=== PATIENT | female | born 1955 | race Caucasian/White ===

== ENCOUNTER 2019-11-28 12:14 | Outpatient (CLI) | payer OTHER, SELFPAY ==
--- NOTE | ~2019-11-28 | US_ITS ---
EXAMINATION: US carotid duplex BI EXAM DATE: 11/28/2019 12:57 INDICATION: Carotid stenosis bilaterally. Right vertebral artery reversal. Subclavian steal. TECHNIQUE: Grayscale, color and pulsed Doppler images of the cervical carotid arteries were obtained . The degree of vessel stenosis is placed in one of the following categories: normal, <50% stenosis, 50-69% stenosis, >=70% stenosis but less than near-occlusion, near-occlusion, or occlusion. Note that percent stenosis relative to normal distal artery lumen diameter is indirectly measured from velocit y measurements as described by Corona, et al. Radiology 2003; 229:340-346. Comparison is made to prior examination from 08/08/2018. FINDINGS: RIGHT SIDE: Right common carotid artery peak systolic velocity (PSV in cm/s): 98 Right bulb/internal carotid artery peak systolic velocity (PSV in cm/s): 87 Right internal carotid artery end diastolic velocity (EDV in cm/s): 16 Right ICA/CCA peak systolic ratio: 0.9 Right external carotid artery peak systolic velocity (PSV in cm/s): 164 Right vertebral artery antegrade flow: Reversed There is mild to moderate carotid bulb plaque. Velocity and Doppler waveforms in the common and internal carotid arteries is normal. LEFT SIDE: Left common carotid artery peak systolic velocity (PSV in cm/s): 93 Left bulb/internal carotid artery peak systolic velocity (PSV in cm/s): 127 Left internal carotid artery end diastolic velocity (EDV in cm/s): 21 Left ICA/CCA peak systolic ratio: 1.4 Left external carotid artery peak systolic velocity (PSV in cm/s): 102 Left vertebral artery antegrade flow: yes There is moderate carotid bifurcation plaque. Mildly elevated ICA velocity. IMPRESSION: 1. Less than 50 percent stenosis in the right internal carotid artery. 2. 50-69% stenosis in the left internal carotid artery. 3. Persistent right vertebral arterial flow reversal. Reviewed, dictated and finalized at location B. OR PROPERTY MANAGER
== END 2019-11-28 12:15 | disposition home or self-care (01) ==
LOC: ANHIMG 12:21
PROVIDERS: PCP Internal Medicine; Visit Provider Surgery Vascular Surgery
DX: I65.23 Occlusion and stenosis of bilateral carotid arteries (principal)
CPT/HCPCS: 93880

== ENCOUNTER 2020-04-06 10:29 | Outpatient (CLI) | payer OTHER, SELFPAY ==
--- NOTE | ~2020-04-06 | XR_ITS ---
XR foot LT min 3V 04/06/2020 10:59 Indication: Personal history of traumatic fracture. Procedure: 4 views left foot Comparison: No prior studies for comparison. Findings: Osteopenia. Lisfranc joint intact. Mild degenerative change of the first MTP joint with fortino lux valgus. There are degenerative calcaneal enthesophytes. No foreign bodies. Impression: 1: No acute bone or joint abnormality. Reviewed, dictated and finalized at location A. Impression: 1: No acute bone or joint abnormality.
[2020-04-06 11:20] LABS: Alanine Aminotransferase 15 U/L (4-35); Albumin Level 4.2 g/dL (3.5-5.1); Alkaline Phosphatase 120 U/L (38-126); Aspartate Amino Transferase 30 U/L (14-36); Bilirubin,Total 0.6 mg/dL (0.2-1.3); Blood Urea Nitrogen 16 mg/dL (7-17); Calcium 8.7 mg/dL (8.4-10.2); Carbon Dioxide 28 mmol/L (22-30); Chloride 105 mmol/L (98-107); Cholesterol 142 mg/dL (0-200); Estimated Glomerular Filt Rate > 60; Glucose 115 mg/dL (65-105); HDL Direct 35 mg/dL; Potassium 3.9 mmol/L (3.4-5.0); Sodium 138 mmol/L (137-145); Triglycerides 60 mg/dL (<150)
[2020-04-06 11:27] LABS: Hemoglobin A1C 6.2 % (<5.7)
[2020-04-06 11:30] LABS: LDL Cholesterol Direct 83 mg/dL
== END 2020-04-06 10:30 | disposition home or self-care (01) ==
PROVIDERS: PCP Internal Medicine; Visit Provider Internal Medicine
DX: E78.5 Hyperlipidemia, unspecified (principal); I10 Essential (primary) hypertension; E08.3 Diabetes mellitus due to underlying condition with ophthalmic complications; Z87.81 Personal history of (healed) traumatic fracture; Z79.899 Other long term (current) drug therapy
CPT/HCPCS: 36415; 73630; 80053; 80061; 83036

== ENCOUNTER 2020-09-26 15:41 | Outpatient (CLI) | payer MEDICARE, MEDICAID, SELFPAY ==
[2020-09-26 16:18] LABS: Alanine Aminotransferase 12 U/L (4-35); Alkaline Phosphatase 134 U/L (38-126); Anion Gap 6 mmol/L (8-16); Aspartate Amino Transferase 29 U/L (14-36); Bilirubin,Total 0.7 mg/dL (0.2-1.3); Blood Urea Nitrogen 12 mg/dL (7-17); Calcium 8.9 mg/dL (8.4-10.2); Carbon Dioxide 32 mmol/L (22-30); Chloride 101 mmol/L (98-107); Cholesterol 148 mg/dL (0-200); Estimated Glomerular Filt Rate > 60; Glucose 103 mg/dL (65-105); HDL Direct 36 mg/dL; Potassium 3.6 mmol/L (3.4-5.0); Sodium 139 mmol/L (137-145); Triglycerides 103 mg/dL (<150)
[2020-09-26 16:22] LABS: Hemoglobin A1C 5.7 % (<5.7)
[2020-09-26 16:29] LABS: LDL Cholesterol Direct 77 mg/dL
== END 2020-09-26 15:42 | disposition home or self-care (01) ==
LOC: ANHLAB 15:46
PROVIDERS: PCP Internal Medicine; Visit Provider Internal Medicine
DX: E78.5 Hyperlipidemia, unspecified (principal); I10 Essential (primary) hypertension; Z79.899 Other long term (current) drug therapy; E08.3 Diabetes mellitus due to underlying condition with ophthalmic complications
CPT/HCPCS: 36415; 80053; 80061; 83036

== ENCOUNTER 2020-11-25 10:44 | Outpatient (CLI) | payer MEDICARE, MEDICAID, SELFPAY ==
--- NOTE | ~2020-11-25 | US_ITS ---
EXAMINATION: US carotid duplex BI DATE: 11/25/2020 11:35 INDICATION: Bilateral carotid stenosis. TECHNIQUE: Grayscale, color Doppler, and pulsed Doppler images of the cervical carotid arteries were obtained. The degree of vessel stenosis is placed in one of the following categories: normal, <50%, 5 0-69%, >=70% but less than near-occlusion, near-occlusion, or total occlusion. Note that percent sten osis relative to normal distal artery lumen diameter is indirectly measured from velocity measurement s as described by Corona, et al. Radiology 2003; 229:340-346. COMPARISON: CTA 08/19/2018 FINDINGS: RIGHT: The right common carotid artery (CCA) peak systolic velocity (PSV) is 90 cm/s. The right internal car otid artery (ICA) PSV is 104 cm/s. The right ICA end-diastolic velocity (EDV) is 20 cm/s. The right I CA/CCA PSV ratio is 1.2. Grayscale and color Doppler images yield an estimate of <50% diameter reduct ion from plaque in the ICA. There is retrograde flow in the right vertebral artery. LEFT: The left CCA PSV is 105 cm/s. The left ICA PSV is 120 cm/s. The left ICA EDV is 23 cm/s. The left ICA /CCA PSV ratio is 1.1. Grayscale and color Doppler images yield an estimate of <50% diameter reductio n from plaque in the ICA. There is antegrade flow in the left vertebral artery. IMPRESSION: 1. <50% stenosis in the right internal carotid artery. 2. <50% stenosis in the left internal carotid artery. 3. Retrograde flow in right vertebral artery, likely secondary to stenosis in the proximal right subc lavian artery as seen on prior CTA, consistent with subclavian steal. Reviewed, dictated and finalized at location A. ET CUTTER IMPRESSION: 1. <50% stenosis in the right internal carotid artery. 2. <50% stenosis in the left internal carotid artery. 3. Retrograde flow in right vertebral artery, likely secondary to stenosis in t he proximal right subclavian artery as seen on prior CTA, consistent with subcl derrek steal.
== END 2020-11-25 10:45 | disposition home or self-care (01) ==
PROVIDERS: PCP Internal Medicine; Visit Provider Surgery Vascular Surgery
DX: I65.23 Occlusion and stenosis of bilateral carotid arteries (principal)
CPT/HCPCS: 93880

== ENCOUNTER 2021-03-26 14:06 | Outpatient (CLI) | payer MEDICARE, MEDICAID, SELFPAY ==
[2021-03-26 14:48] LABS: Alanine Aminotransferase 16 U/L (4-35); Albumin Level 3.9 g/dL (3.5-5.1); Alkaline Phosphatase 119 U/L (38-126); Anion Gap 10 mmol/L (8-16); Aspartate Amino Transferase 30 U/L (14-36); Bilirubin,Total 0.7 mg/dL (0.2-1.3); Blood Urea Nitrogen 17 mg/dL (7-17); Calcium 9.4 mg/dL (8.4-10.2); Carbon Dioxide 26 mmol/L (22-30); Chloride 106 mmol/L (98-107); Cholesterol 153 mg/dL (0-200); Estimated Glomerular Filt Rate > 60; Glucose 103 mg/dL (65-105); HDL Direct 38 mg/dL; Potassium 3.8 mmol/L (3.4-5.0); Sodium 142 mmol/L (137-145); Triglycerides 104 mg/dL (<150)
[2021-03-26 15:00] LABS: LDL Cholesterol Direct 74 mg/dL
== END 2021-03-26 14:07 | disposition home or self-care (01) ==
LOC: ANHLAB 14:10
PROVIDERS: PCP Internal Medicine; Visit Provider Nurse Practitioner
DX: E78.5 Hyperlipidemia, unspecified (principal); R73.03 Prediabetes
CPT/HCPCS: 36415; 80053; 80061; 83036

== ENCOUNTER 2021-10-01 13:53 | Outpatient (CLI) | payer MEDICARE, MEDICAID, SELFPAY ==
[2021-10-01 15:14] LABS: Alanine Aminotransferase 15 U/L (4-35); Albumin Level 4.2 g/dL (3.5-5.1); Alkaline Phosphatase 127 U/L (38-126); Anion Gap 11 mmol/L (8-16); Aspartate Amino Transferase 30 U/L (14-36); Bilirubin,Total 0.7 mg/dL (0.2-1.3); Blood Urea Nitrogen 17 mg/dL (7-17); Calcium 9.2 mg/dL (8.4-10.2); Carbon Dioxide 26 mmol/L (22-30); Chloride 105 mmol/L (98-107); Cholesterol 156 mg/dL (0-200); Estimated Glomerular Filt Rate 55; Glucose 95 mg/dL (65-110); HDL Direct 37 mg/dL; Potassium 4.3 mmol/L (3.4-5.0); Sodium 142 mmol/L (137-145); Triglycerides 107 mg/dL (<150)
[2021-10-01 15:25] LABS: LDL Cholesterol Direct 83 mg/dL
[2021-10-01 18:22] LABS: Hemoglobin A1C 6.1 % (<5.7)
== END 2021-10-01 13:54 | disposition home or self-care (01) ==
PROVIDERS: PCP Internal Medicine; Visit Provider Internal Medicine
DX: R73.03 Prediabetes (principal); Z79.899 Other long term (current) drug therapy; I10 Essential (primary) hypertension; E78.5 Hyperlipidemia, unspecified
CPT/HCPCS: 36415; 80053; 80061; 83036; 83735

== ENCOUNTER 2021-12-10 10:29 | Outpatient (CLI) | payer MEDICARE, MEDICAID, SELFPAY ==
--- NOTE | ~2021-12-10 | US_ITS ---
EXAMINATION: US carotid duplex BI DATE: 12/10/2021 10:57 INDICATION: Bilateral carotid stenosis. TECHNIQUE: Grayscale, color Doppler, and pulsed Doppler images of the cervical carotid arteries were obtained. The degree of vessel stenosis is placed in one of the following categories: normal, <50%, 5 0-69%, >=70% but less than near-occlusion, near-occlusion, or total occlusion. Note that percent sten osis relative to normal distal artery lumen diameter is indirectly measured from velocity measurement s as described by Corona, et al. Radiology 2003; 229:340-346. Notes: Normal: Peak systolic velocity <125 centimeters/sec and no plaque <50%. Peak systolic velocity <125 ( EDV <40; ICA/CCA PSV ratio <2.0; used these factors only a tandem lesions or low cardiac output or co ntralateral disease) 50-69 %: PSV 125-230 (EDV 40-100; ratio 2-4) >= 70% but less than near occlusion: PSV greater than 230 (EDV > 100; ratio> 4.0) Near Occlusion: PSV that is variable; markedly narrowed lumen Occlusion: Absent flow on color/spectral Doppler and no lumen on matson scale. COMPARISON: None. FINDINGS: RIGHT: The right common carotid artery (CCA) peak systolic velocity (PSV) is 110 cm/s. The right internal ca rotid artery (ICA) PSV is 128 cm/s. The right ICA end-diastolic velocity (EDV) is 28 cm/s. The right ICA/CCA PSV ratio is 1.2. The external carotid artery (ECA) PSV is 231 cm/s. There is reversed flow i n the right vertebral artery. LEFT: The left CCA PSV is 117 cm/s. The left ICA PSV is 166 cm/s. The left ICA EDV is 36 cm/s. The left ICA /CCA PSV ratio is 1.4. The ECA PSV is 108 cm/s. There is antegrade flow in the left vertebral artery . IMPRESSION: 1. 50-69% stenosis in the right internal carotid artery by sonographic criteria. 2. 50-69% stenosis in the left internal carotid artery by sonographic criteria. 3: Retrograde right vertebral artery flow. Reviewed, dictated and finalized at location B. ER ASSOCIATE IMPRESSION: 1. 50-69% stenosis in the right internal carotid artery by sonographic criteria . 2. 50-69% stenosis in the left internal carotid artery by sonographic criteria. 3: Retrograde right vertebral artery flow.
== END 2021-12-10 10:30 | disposition home or self-care (01) ==
LOC: ANHIMG 10:30
PROVIDERS: PCP Internal Medicine; Visit Provider Surgery Vascular Surgery
DX: I65.23 Occlusion and stenosis of bilateral carotid arteries (principal)
CPT/HCPCS: 93880

== ENCOUNTER 2021-12-15 10:40 | Outpatient (CLI) | payer MEDICARE, MEDICAID, SELFPAY ==
--- NOTE | ~2021-12-15 | MM_ITS ---
EXAMINATION: MM screening ayse BI w lolita HISTORY: Screening mammogram, family history of breast cancer in her sister. TECHNIQUE: Craniocaudal and mediolateral oblique 3-D tomosynthesis images were obtained and synthetic 2-D images were generated. CAD analysis was submitted and interpreted. COMPARISON: 01/08/2012 BREAST PARENCHYMAL COMPOSITION: There are scattered areas of fibroglandular density. FINDINGS: There is no evidence of suspicious mass, calcification, or architectural distortion to sugg est malignancy in either breast. There has been no suspicious interval change. IMPRESSION: 1. No mammographic evidence of malignancy. 2. Recommend routine screening mammography in one year. BI-RADS Category 1: Negative Reviewed, dictated and finalized at location A. E WEIGHER
== END 2021-12-15 10:41 | disposition home or self-care (01) ==
LOC: ANHIMG 10:41
PROVIDERS: PCP Internal Medicine; Visit Provider Nurse Practitioner
DX: Z12.31 Encounter for screening mammogram for malignant neoplasm of breast (principal)
CPT/HCPCS: 77063; 77067

== ENCOUNTER 2022-04-09 12:33 | Outpatient (CLI) | payer MEDICARE, MEDICAID, SELFPAY ==
[2022-04-09 13:24] LABS: Alanine Aminotransferase 15 U/L (6-35); Albumin Level 3.9 g/dL (3.5-5.1); Alkaline Phosphatase 125 U/L (38-126); Anion Gap 5 mmol/L (8-16); Aspartate Amino Transferase 28 U/L (14-36); Bilirubin,Total 0.5 mg/dL (0.2-1.3); Blood Urea Nitrogen 16 mg/dL (7-17); Calcium 8.8 mg/dL (8.4-10.2); Carbon Dioxide 26 mmol/L (22-30); Chloride 107 mmol/L (98-107); Cholesterol 151 mg/dL (0-200); Estimated Glomerular Filt Rate > 60; Glucose 106 mg/dL (65-110); HDL Direct 39 mg/dL; Potassium 3.6 mmol/L (3.4-5.0); Sodium 138 mmol/L (137-145); Triglycerides 89 mg/dL (<150)
[2022-04-09 13:34] LABS: LDL Cholesterol Direct 77 mg/dL
== END 2022-04-09 12:34 | disposition home or self-care (01) ==
PROVIDERS: PCP Internal Medicine; Visit Provider Nurse Practitioner
DX: E78.5 Hyperlipidemia, unspecified (principal); R73.03 Prediabetes
CPT/HCPCS: 36415; 80053; 80061; 83036

== ENCOUNTER 2022-07-02 15:35 | Outpatient (CLI) | payer MEDICARE, MEDICAID, SELFPAY ==
--- NOTE | ~2022-07-02 | DEXA_ITS ---
Bone Density Report Name: FIORDALIZA PANDA Age: 67 Sex: Female Ethnicity: White Date of : 1955 Indication: postmenopausal; screening for osteoporosis; height loss; Referring Provider: BENTON CASTRO Study: Bone densitometry was performed. Exam Date: July 02, 2022 Accession number: [id number] Bone Density: Region BMD T-score Z-score Classification AP Spine(L1-L4) 0.941 -1.0 0.9 Normal Femoral Neck (Left) 0.663 -1.7 0.0 Osteopenia Total Hip (Left) 0.779 -1.3 0.0 Osteopenia Femoral Neck (Right) 0.685 -1.5 0.2 Osteopenia Total Hip (Right) 0.814 -1.0 0.3 Normal Total Hip Mean 0.796 -1.2 0.2 Osteopenia World Health Organization criteria for BMD impression classify patients as: Normal (T-score at or above -1.0), Osteopenia (T-score between -1.0 and -2.5), or Osteoporosis (T-score at or below -2.5). 10-year Fracture Risk(1): Major Osteoporotic Fracture 9.3% Hip Fracture 1.2% Reported Risk Factors: [place] (), Neck BMD=0.663, BMI=30.8 (1) FRAX(R) Version 3.08. Fracture probability calculated for an untreated patient. Fracture probability may be lower if the patient has received treatment. Clinical Information Provided by Patient: Patient maximum height was 67 Menopause Age: 45 Drinks caffeinated beverages Onset of menses at age 12 Number of children 3 Impression: The patient has low bone mass, based on the Left Femoral Neck T-score. The patient has an estimated ten-year risk of hip fracture of 1.2% and an estimated ten-year risk of major fracture of 9.3%, based on the WHO FRAX algorithm. Discussion: BONE DENSITY IS LOW AT ONE OR MORE SKELETAL SITES. This patient's lowest T-score is low at one or more skeletal sites. It meets the World Health Organization's (WHO) criteria for ?low bone mass? (T-score between -1.0 and -2.5). The patient's 10-year risk of fracture as calculated by FRAX is less than the threshold where pharmacological therapy is recommended by the National Osteoporosis Foundation (NOF). However, all treatment decisions require clinical judgment and consideration of individual patient factors, including patient preferences, comorbidities, previous drug use, risk factors not captured in the FRAX model (e.g., frailty, falls, vitamin D deficiency, increased bone turnover, interval significant decline in bone density) and possible under or overestimation of fracture risk by FRAX. The patient should follow a healthful lifestyle (good nutrition with adequate calcium and vitamin D, and appropriate weight-bearing exercise). Follow-Up: Consider repeating this study in 2 to 3 years to reassess this patient's status, or sooner if there is some new clinical indication. Reported by: MAVIS on 07/02/2022 3:56:00 PM.
== END 2022-07-02 15:36 | disposition home or self-care (01) ==
PROVIDERS: PCP Internal Medicine; Visit Provider Nurse Practitioner
DX: Z78.0 Asymptomatic menopausal state (principal); M85.852 Other specified disorders of bone density and structure, left thigh; M85.851 Other specified disorders of bone density and structure, right thigh
CPT/HCPCS: 77080

== ENCOUNTER 2022-10-23 14:58 | Outpatient (CLI) | payer MEDICARE, MEDICAID, SELFPAY ==
[2022-10-23 15:42] LABS: Alanine Aminotransferase 20 U/L (6-35); Albumin Level 4.2 g/dL (3.5-5.1); Alkaline Phosphatase 123 U/L (38-126); Anion Gap 3 mmol/L (8-16); Aspartate Amino Transferase 33 U/L (14-36); Bilirubin,Total 0.6 mg/dL (0.2-1.3); Blood Urea Nitrogen 15 mg/dL (7-17); Calcium 9.1 mg/dL (8.4-10.2); Carbon Dioxide 29 mmol/L (22-30); Chloride 104 mmol/L (98-107); Cholesterol 153 mg/dL (0-200); Estimated Glomerular Filt Rate > 60; Glucose 92 mg/dL (65-110); HDL Direct 37 mg/dL; Magnesium 2.1 mg/dL (1.6-2.3); Potassium 3.8 mmol/L (3.4-5.0); Sodium 136 mmol/L (137-145); Triglycerides 110 mg/dL (<150)
[2022-10-23 15:53] LABS: LDL Cholesterol Direct 75 mg/dL
[2022-10-23 16:27] LABS: Hemoglobin A1C 5.9 % (<5.7)
== END 2022-10-23 14:59 | disposition home or self-care (01) ==
PROVIDERS: PCP Internal Medicine; Visit Provider Nurse Practitioner
DX: R73.03 Prediabetes (principal); E78.2 Mixed hyperlipidemia; Z13.21 Encounter for screening for nutritional disorder
CPT/HCPCS: 36415; 80053; 80061; 83036; 83735

== ENCOUNTER 2022-10-31 13:09 | Outpatient (CLI) | payer MEDICARE, MEDICAID, SELFPAY ==
[2022-10-31 13:40] LABS: Alanine Aminotransferase 20 U/L (6-35); Albumin Level 4.5 g/dL (3.5-5.1); Alkaline Phosphatase 113 U/L (38-126); Anion Gap 5 mmol/L (8-16); Aspartate Amino Transferase 38 U/L (14-36); Bilirubin,Total 0.7 mg/dL (0.2-1.3); Blood Urea Nitrogen 18 mg/dL (7-17); Carbon Dioxide 31 mmol/L (22-30); Chloride 103 mmol/L (98-107); Estimated Glomerular Filt Rate 55; Glucose 101 mg/dL (65-110); Potassium 3.6 mmol/L (3.4-5.0); Sodium 139 mmol/L (137-145)
[2022-10-31 13:59] LABS: Vitamin D 25 Hydroxy 16.4 ng/mL
== END 2022-10-31 13:10 | disposition home or self-care (01) ==
PROVIDERS: PCP Internal Medicine; Visit Provider Nurse Practitioner
DX: E78.5 Hyperlipidemia, unspecified (principal); E55.9 Vitamin D deficiency, unspecified; E11.9 Type 2 diabetes mellitus without complications
CPT/HCPCS: 36415; 80053; 82306; 84443

== ENCOUNTER 2022-11-30 08:59 | Outpatient (CLI) | payer MEDICARE, MEDICAID, SELFPAY ==
--- NOTE | ~2022-11-30 | US_ITS ---
Procedure: Duplex Doppler examination of the bilateral carotids. Indication: Carotid stenosis COMPARISON: 12/10/2021 Technique: Real time, color-flow and pulse wave Doppler examination of the bilateral carotids was performed. Findings: Wilcox scale ultrasonography of the right neck demonstrated small calcified plaque at the carotid bifur cation. There was demonstration of normal color-flow and Doppler waveforms within the right common, i nternal and external carotid arteries. The peak systolic velocities in the right common, internal and external carotid arteries were demonstrated to be 113 cm/sec, 102 cm/sec and 238 cm/sec respectively . The right ICA/CCA ratio was 0.9.The proximal right internal carotid artery demonstrates 0% stenosis relative to the normal distal artery lumen diameter. Wilcox scale sonography of the left neck demonstrated small calcified plaque at the proximal to mid lef t common carotid artery. Moderate calcified plaques are present at the mid left internal carotid marcus ry. There was demonstration of normal color-flow and wave forms within the left common, internal and external carotid arteries. The peak systolic velocities in the left common, internal and external car otid arteries were demonstrated to be 85cm/sec, 166 cm/sec and 127 cm/sec respectively. The left ICA/ CCA ratio was 1.3. The proximal left internal carotid artery demonstrates 0% stenosis relative to the normal distal artery lumen diameter. Right vertebral artery demonstrates reversal of normal flow direction. Left vertebral artery demonstr ates antegrade flow. Impression: Moderate (50-6 9%) stenosis at the mid left internal carotid artery. No hemodynamically significant stenosis in the right internal carotid artery. Reversal of flow direction in the right vertebral artery, stable from prior exam. Note: The methodology used is an indirect measurement validated against a direct method (such as the NASCET criteria) that compares diameters at the stenosis to the distal ICA. Reviewed, dictated and finalized at location M. S AND PRODUCTION MANAGER Impression: Moderate (50-6 9%) stenosis at the mid left internal carotid artery. No hemodynamically significant stenosis in the right internal carotid artery. Reversal of flow direction in the right vertebral artery, stable from prior exa m. Note: The methodology used is an indirect measurement validated against a direct meth od (such as the NASCET criteria) that compares diameters at the stenosis to the distal ICA.
== END 2022-11-30 09:00 | disposition home or self-care (01) ==
PROVIDERS: PCP Internal Medicine; Visit Provider Surgery Vascular Surgery
DX: I65.22 Occlusion and stenosis of left carotid artery (principal)
CPT/HCPCS: 93880

== ENCOUNTER 2023-04-27 13:18 | Outpatient (CLI) | payer MEDICARE, MEDICAID, SELFPAY ==
[2023-04-27 13:44] LABS: Cholesterol 149 mg/dL (0-200); HDL Direct 35 mg/dL; Triglycerides 108 mg/dL (<150)
[2023-04-27 13:54] LABS: LDL Cholesterol Direct 74 mg/dL
== END 2023-04-27 13:19 | disposition home or self-care (01) ==
PROVIDERS: PCP Nurse Practitioner; Visit Provider Nurse Practitioner
DX: E78.5 Hyperlipidemia, unspecified (principal)
CPT/HCPCS: 36415; 80061

== ENCOUNTER 2023-08-02 13:08 | Outpatient (CLI) | payer MEDICARE, MEDICAID, SELFPAY ==
[2023-08-02 14:03] LABS: Basophils Percent Auto 0.6 % (0.2-1.2); Eosinophils Absolute Auto 0.1 K/mm3 (0-0.3); Eosinophils Percent Auto 1.1 % (0-4.4); Hematocrit 40.9 % (37.0-47.0); Hemoglobin 13.4 g/dL (12.0-15.0); Immature Granulocyte Absolute 0.01 K/mm3 (0.00-0.031); Immature Granulocyte Percent A 0.2 % (0-0.5); Lymphocytes Absolute Auto 2.15 K/mm3 (0.9-3.2); Lymphocytes Percent Auto 34.7 % (18.3-44.2); Mean Corpuscular HGB Conc 32.8 g/dl (32-36); Mean Corpuscular Hemoglobin 33.6 pg (26-34); Mean Corpuscular Volume 102.5 fl (80-100); Mean Platelet Volume 10.6 fl (7.4-10.4); Monocytes Absolute Auto 0.4 K/mm3 (0.1-0.6); Monocytes Percent Auto 6.6 % (2.6-8.5); Neutrophils Absolute Auto 3.5 K/mm3 (1.3-6.7); Neutrophils Percent Auto 56.8 % (45.5-73.1); Platelet Count Result 175 k/mm3 (150-375); Red Blood Count 3.99 M/mm3 (4.2-5.4); Red Cell Distribution Width 13.2 % (11.5-14.5); White Blood Count 6.2 K/mm3 (4.5-10.0)
[2023-08-02 16:52] LABS: Iron 75 ug/dL (37-170)
[2023-08-02 17:01] LABS: Percent Iron Saturation 21 % (20-50)
== END 2023-08-02 13:09 | disposition home or self-care (01) ==
PROVIDERS: PCP Nurse Practitioner
DX: D48.5 Neoplasm of uncertain behavior of skin (principal); L65.9 Nonscarring hair loss, unspecified
CPT/HCPCS: 36415; 82728; 83540; 83550; 84443; 85025

== ENCOUNTER 2023-08-24 13:43 | Outpatient (CLI) | payer MEDICARE, MEDICAID, SELFPAY | END 2023-08-24 13:44 | disposition home or self-care (01) | LOC: ANHAUDIO 13:44 | PROVIDERS: PCP Nurse Practitioner; Visit Provider Otolaryngology | DX: H90.6 Mixed conductive and sensorineural hearing loss, bilateral (principal); H93.19 Tinnitus, unspecified ear; H72.90 Unspecified perforation of tympanic membrane, unspecified ear; H66.93 Otitis media, unspecified, bilateral | CPT/HCPCS: 92557; 92567 ==

== ENCOUNTER 2023-10-28 13:58 | Outpatient (CLI) | payer MEDICARE, MEDICAID, SELFPAY ==
[2023-10-28 14:24] LABS: Hematocrit 40.7 % (37.0-47.0); Hemoglobin 13.3 g/dL (12.0-15.0); Mean Corpuscular HGB Conc 32.7 g/dl (32-36); Mean Corpuscular Hemoglobin 33.3 pg (26-34); Mean Corpuscular Volume 101.8 fl (80-100); Mean Platelet Volume 10.2 fl (7.4-10.4); Platelet Count Result 163 k/mm3 (150-375); Red Cell Distribution Width 13.6 % (11.5-14.5); White Blood Count 6.3 K/mm3 (4.5-10.0)
[2023-10-28 14:35] LABS: Alanine Aminotransferase 16 U/L (6-35); Albumin Level 3.9 g/dL (3.5-5.1); Alkaline Phosphatase 111 U/L (38-126); Anion Gap 9 mmol/L (8-16); Aspartate Amino Transferase 34 U/L (14-36); Bilirubin,Total 0.8 mg/dL (0.2-1.3); Blood Urea Nitrogen 19 mg/dL (7-17); Carbon Dioxide 28 mmol/L (22-30); Chloride 105 mmol/L (98-107); Cholesterol 146 mg/dL (0-200); Estimated Glomerular Filt Rate > 60; Glucose 98 mg/dL (65-110); HDL Direct 35 mg/dL; Potassium 3.9 mmol/L (3.4-5.0); Sodium 142 mmol/L (137-145); Triglycerides 71 mg/dL (<150)
[2023-10-28 14:46] LABS: LDL Cholesterol Direct 85 mg/dL
[2023-10-28 17:25] LABS: Hemoglobin A1C 6.2 % (<5.7)
[2023-10-28 17:49] LABS: Vitamin D 25 Hydroxy 20.3 ng/mL
== END 2023-10-28 13:59 | disposition home or self-care (01) ==
LOC: ANHLAB 14:03
PROVIDERS: PCP Nurse Practitioner; Visit Provider Nurse Practitioner
DX: R73.03 Prediabetes (principal); E78.5 Hyperlipidemia, unspecified; I10 Essential (primary) hypertension; E55.9 Vitamin D deficiency, unspecified
CPT/HCPCS: 36415; 80053; 80061; 82306; 83036; 85027

== ENCOUNTER 2023-11-18 09:35 | Outpatient (CLI) | payer MEDICARE, MEDICAID, SELFPAY ==
--- NOTE | ~2023-11-18 | US_ITS ---
EXAMINATION: US carotid duplex BI DATE: 11/18/2023 10:25 INDICATION: Bilateral carotid stenosis TECHNIQUE: Grayscale, color Doppler, and pulsed Doppler images of the cervical carotid arteries were obtained. The degree of vessel stenosis is placed in one of the following categories: normal, <50%, 5 0-69%, >=70% but less than near-occlusion, near-occlusion, or total occlusion. Note that percent sten osis relative to normal distal artery lumen diameter is indirectly measured from velocity measurement s as described by Corona, et al. Radiology 2003; 229:340-346. COMPARISON: November 30, 2022 carotid duplex examination. Zoie lomas FINDINGS: RIGHT: The right common carotid artery (CCA) peak systolic velocity (PSV) is 127.7 cm/s. The right internal carotid artery (ICA) PSV is 133.8 cm/s. The right ICA end-diastolic velocity (EDV) is 24.7 cm/s. The right ICA/CCA PSV ratio is 1.0. Grayscale and color Doppler images yield an estimate of less than 50% diameter reduction from plaque in the ICA. The external carotid artery (ECA) PSV is 232.4 cm/s. Ther e is retrograde flow in the right vertebral artery. LEFT: The left CCA PSV is 120.4 cm/s. The left ICA PSV is 128.8 cm/s. The left ICA EDV is 21.6 cm/s. The le ft ICA/CCA PSV ratio is 1.1. Grayscale and color Doppler images yield an estimate of less than 50% di ameter reduction from plaque in the ICA. The ECA PSV is 98.7 cm/s. There is antegrade flow in the lef t vertebral artery. IMPRESSION: 1. Less than 50% stenosis in the right internal carotid artery. 2. Less than 50% stenosis in the left internal carotid artery. 3. Flow reversal is again noted in the right vertebral artery. Reviewed, dictated and finalized Location A. Reviewed, dictated and finalized at location L. AL HEALTH DIRECTOR
== END 2023-11-18 09:36 | disposition home or self-care (01) ==
LOC: ANHIMG 09:38
PROVIDERS: PCP Nurse Practitioner; Visit Provider Surgery Vascular Surgery
DX: I65.23 Occlusion and stenosis of bilateral carotid arteries (principal)
CPT/HCPCS: 93880

== ENCOUNTER 2024-05-04 09:04 | Outpatient (CLI) | payer MEDICARE, MEDICAID, SELFPAY ==
--- NOTE | ~2024-05-04 | MM_ITS ---
EXAMINATION: MM screening ayse BI w lolita HISTORY: Screening TECHNIQUE: Craniocaudal and mediolateral oblique 3-D tomosynthesis images were obtained and synthetic 2-D images were generated. CAD analysis was submitted and interpreted. COMPARISON: Comparison to multiple prior studies sequentially, with oldest reviewed study dated 01/07. BREAST PARENCHYMAL COMPOSITION: Not dense: There are scattered areas of fibroglandular density. FINDINGS: There is no evidence of suspicious mass, calcification, or architectural distortion to sugg est malignancy in either breast. There has been no suspicious interval change. IMPRESSION: 1. No mammographic evidence of malignancy. 2. Recommend routine screening mammography in one year. BI-RADS Category 1: Negative Reviewed, dictated and finalized at location B.
== END 2024-05-04 09:05 | disposition home or self-care (01) ==
PROVIDERS: PCP Family Medicine; Visit Provider Nurse Practitioner
DX: Z12.31 Encounter for screening mammogram for malignant neoplasm of breast (principal)
CPT/HCPCS: 77063; 77067

== ENCOUNTER 2024-05-17 12:14 | Outpatient (CLI) | payer MEDICARE, MEDICAID, SELFPAY ==
[2024-05-17 13:15] LABS: Hemoglobin A1C 6.2 % (<5.7)
[2024-05-17 13:16] LABS: Alanine Aminotransferase 17 U/L (6-35); Albumin Level 4.3 g/dL (3.5-5.1); Alkaline Phosphatase 95 U/L (38-126); Anion Gap 11 mmol/L (4-12); Aspartate Amino Transferase 31 U/L (14-36); Bilirubin,Total 0.7 mg/dL (0.2-1.3); Blood Urea Nitrogen 20 mg/dL (7-17); Calcium 8.9 mg/dL (8.4-10.2); Carbon Dioxide 24 mmol/L (22-30); Chloride 104 mmol/L (98-107); Cholesterol 152 mg/dL (0-200); Estimated Glomerular Filt Rate > 60; Glucose 107 mg/dL (65-110); HDL Direct 40 mg/dL; Potassium 3.7 mmol/L (3.4-5.0); Sodium 139 mmol/L (137-145); Triglycerides 88 mg/dL (<150)
[2024-05-17 13:27] LABS: LDL Cholesterol Direct 79 mg/dL
[2024-05-17 14:53] LABS: Vitamin D 25 Hydroxy 40.6 ng/mL
== END 2024-05-17 12:15 | disposition home or self-care (01) ==
PROVIDERS: PCP Family Medicine; Visit Provider Nurse Practitioner
DX: E78.5 Hyperlipidemia, unspecified (principal); R73.03 Prediabetes; E55.9 Vitamin D deficiency, unspecified
CPT/HCPCS: 36415; 80053; 80061; 82306; 83036

== ENCOUNTER 2024-09-01 12:48 | Outpatient (CLI) | payer MEDICARE, MEDICAID, SELFPAY | END 2024-09-01 12:49 | disposition home or self-care (01) | PROVIDERS: PCP Family Medicine; Visit Provider Otolaryngology | DX: H90.6 Mixed conductive and sensorineural hearing loss, bilateral (principal); H69.90 Unspecified Eustachian tube disorder, unspecified ear; J31.0 Chronic rhinitis | CPT/HCPCS: 92557; 92567 ==

== ENCOUNTER 2024-10-16 15:33 | Outpatient (CLI) | payer MEDICARE, MEDICAID, SELFPAY ==
--- NOTE | ~2024-10-16 | XR_ITS ---
[id number] Ordering provider: Jeremiah Santiago MD History: . M79.673 - Pain in unspecified foot . Comparison: None. FINDINGS: BONES: Subluxation in the proximal interphalangeal joint of the middle toe. Calcaneus spur. Ossification of the insertion of the tendo Achilles. JOINT SPACES: Narrowing of the proximal and distal interphalangeal joints.. No tarsal coalition. SOFT TISSUES: Normal. IMPRESSION: Highly suggestive subluxation of the proximal interphalangeal joint of the middle toe. Otherwise, No definite acute osseous abnormality left foot. Polyarticular osteoarthritic changes. Reviewed, dictated and finalized at location A. IAC CATH RN IMPRESSION: Highly suggestive subluxation of the proximal interphalangeal joint of the midd le toe. Otherwise, No definite acute osseous abnormality left foot. Polyarticular osteoarthritic changes.
== END 2024-10-16 15:34 | disposition home or self-care (01) ==
PROVIDERS: PCP Family Medicine; Visit Provider Family Medicine
DX: M19.072 Primary osteoarthritis, left ankle and foot (principal)
CPT/HCPCS: 73630

== ENCOUNTER 2024-11-15 13:10 | Outpatient (CLI) | payer MEDICARE, MEDICAID, SELFPAY ==
--- OUTSIDE RECORDS SUMMARY | 2024-11-15 14:12 | XMS_ITS | Clinical Summary ---
Author Organization [facility] Address [address] [place] [address]. [place] [address] [place] [address] Care Team Providers Care Fur Coat Sewer Name Role Phone Liang Isbell MD Unavailable Keith Pablo DO Primary Care Provider [phone] Allergies Active Allergy Reactions Criticality Noted Date Comments Sulfa Antibiotics Unknown 10/28/2018 Medications atorvastatin 20 MG tablet Take 1 tablet by mouth daily. 9 Active aspirin 81 MG tablet Take 1 tablet (81 mg total) by mouth daily. 9 Active furosemide 40 MG tablet Take 40 mg by mouth every morning. Active potassium chloride CR 10 MEQ tablet Take 10 mEq by mouth daily. Active metoprolol succinate ER 50 MG 24 hr tablet Take 50 mg by mouth daily. 1 Active buPROPion XL 150 MG 24 hr tablet bupropion HCl XL 150 mg 24 hr tablet, extended release Active potassium chloride CR 10 MEQ Tab CR tablet Take 10 mEq by mouth daily. 2 Active Active Problems Problem Noted Date Diagnosed Date Body mass index (BMI) of 30.0-30.9 in adult 07/20 Overview (12/15/2021): Last Assessment & Plan: Condition: stable Educated patient on normal BMI range of 18.5 to 24.9 Advised to monitor nutrition to not exceed caloric needs, or as indicated by PCP in order to maintain a healthy weight and BMI. Advised to engage in aerobic physical activity, if indicated to be safe by PCP, to assist with maintaining a healthy weight and BMI. Advised to follow up with PCP to address nutrition as needed to assist with reaching or maintaining a healthy weight and BMI. Follow up in: three months with PCP Essential hypertension 08/16/2019 Overview (12/15/2021): Last Assessment & Plan: Condition: stable Discussed target blood pressure. Continue medication as prescribed from PCP/specialist. Take medications at the same time every day. Lifestyle modification advised: DASH diet, reduce stress/anxiety, discussed health weight management, activity as tolerated or advised from PCP, try to avoid alcohol and nicotine. Follow up in: three months with PCP Mixed hyperlipidemia 08/16/2019 Overview (12/15/2021): Last Assessment & Plan: Condition: stable Discussed with Greta behavior modifications to include choosing healthier options for foods and avoiding foods fast foods or foods that are fried, high in trans fats or preservatives. Greta encouraged to maintain medication compliance and to increase their current level of exercise activity to 3- 4 times weekly. Greta verbalized understanding and advised to keep all scheduled appointments. Follow up in: three months with PCP Osteoarthrosis 08/16/2019 Overview (12/15/2021): Last Assessment & Plan: Condition: stable Greta reports compliance with prescribed medications and denies side effects such as medication related stomach ulcers. Member reports worsening morning stiffness that lasts less than 30 minutes; nocturnal pain, muscle weakness and locking of joints. Greta demonstrates full range of motion in the affected joint as well as an altered gait. Greta educated on weight reduction, increasing joint friendly low impact physical activity and maintaining a healthy weight. she was advised to discuss any issues with their PCP and keep all follow up appointments. Follow up in: three months PCP Routine health maintenance 08/16/2019 Overview (12/15/2021): Last Assessment & Plan: Condition: stable Explained to Pt that routine health maintenance is performed to identify any issues that may become medical concerns in the future. Perform a comprehensive review and assessment of patients medical history, current medications, psycho-social well being and social determinants of health. Ensure that patent is maintaining a healthy diet and exercise routine. Check for possible diseases so they can be treated early. Follow up in: three months with PCP Carotid stenosis, asymptomatic, bilateral 2018 Renal cyst 11/18/2018 Family History Medical History Relation Comments Heart Attack Father Relation Status Comments Father (Age 65) Mother (Age 88) Social History Tobacco Use Types Packs/Day Years Used Date Smoking Tobacco: Former Cigarettes Q uit: 01/31/2018 Smokeless Tobacco: Never Comments:Heavy Smoker Alcohol Use Standard Drinks/Week Comments No 0 (1 standard drink = 0.6 oz pur e alcohol) AUDIT-C Answer Date Recorded Frequency of Alcohol Consumption Never 10/28/2018 Average Number of Drinks Not on file 019 Frequency of Binge Drinking Not on file 10/18 Comments Unknown Sex and Gender Information Value Date Recorded Sex Assigned at Not on file Legal Sex Female 4:10 PM [employer] Gender Identity Not on file Sexual Orientation Not on file Last Filed Vital Signs Vital Sign Reading Time Taken Comments Blood Pressure 162/78 12/12/2020 10:06 AM [employer] Pulse 82 12/12/2020 10:06 AM [employer] Temperature - - Respiratory Rate - - Oxygen Saturation 93% 12/12/2020 10:06 AM [employer] Inhaled Oxygen Concentration - - Weight 91.2 kg (201 lb) 12/12/2020 10:06 AM [employer] Height 170.2 cm (5' 7 ) 12/12/2020 10:06 AM [employer] Body Mass Index 31.48 12/12/2020 10:06 AM [employer] Plan of Treatment Health Maintenance Due Date Last Done Comments Colorectal Cancer Screening Colonoscopy (10 Years) 1955 Hepatitis C 1973 DTaP, Tdap and Td Vaccines ( 1 - Tdap) 1974 Mammogram Screening 1995 Zoster Vaccines (1 of 2) 2005 Annual Medicare Wellness Visit 2020 Dexa Scan (General) 2020 Pneumococcal Vaccine: 65+ Ye ars (1 of 1 - PCV) 2020 COVID-19 Vaccine (2023-2 5 season) 2024 Influenza Adult (#1) 2024 RSV Immunization or 60+ Years (1 - 1-dose 75+ series) 2030 Meningococcal B Vaccine Aged Out No l onger eligible based on patient's age to complete this topic Meningococcal Vaccine Aged Out No vicente cheryl eligible based on patient's age to complete this topic RSV Immunizations Under 20 Months Aged Out No longer eligible based on patient's age to complete this topic Insurance MEDICAID MEDICARE Care Teams Fur Coat Sewer Relationship Specialty Start Date End Date Keith Pablo DO [address] [address] PCP - General INTERNAL MEDICINE 10/18/19 Liang Isbell MD [facility] [address] [place] [address] Referring Physician VASCULAR SURGERY 10/26/18
[2024-11-15 14:14] LABS: Hematocrit 39.8 % (37.0-47.0); Mean Corpuscular HGB Conc 32.7 g/dl (32-36); Mean Corpuscular Hemoglobin 32.8 pg (26-34); Mean Corpuscular Volume 100.5 fl (80-100); Mean Platelet Volume 10.3 fl (7.4-10.4); Platelet Count Result 175 k/mm3 (150-375); Red Blood Count 3.96 M/mm3 (4.2-5.4); Red Cell Distribution Width 13.3 % (11.5-14.5); White Blood Count 5.8 K/mm3 (4.5-10.0)
[2024-11-15 17:48] LABS: Alanine Aminotransferase 31 U/L (6-35); Albumin Level 4.1 g/dL (3.5-5.1); Alkaline Phosphatase 114 U/L (38-126); Anion Gap 11 mmol/L (4-12); Aspartate Amino Transferase 45 U/L (14-36); Bilirubin,Total 0.7 mg/dL (0.2-1.3); Blood Urea Nitrogen 23 mg/dL (7-17); Calcium 9.7 mg/dL (8.4-10.2); Carbon Dioxide 28 mmol/L (22-30); Chloride 101 mmol/L (98-107); Estimated Glomerular Filt Rate > 60; Glucose 90 mg/dL (65-110); Magnesium 2.1 mg/dL (1.6-2.3); Sodium 140 mmol/L (137-145)
== END 2024-11-15 13:11 | disposition home or self-care (01) ==
LOC: ANHLAB 13:13
PROVIDERS: PCP Family Medicine; Visit Provider Family Medicine
DX: M79.673 Pain in unspecified foot (principal); E66.9 Obesity, unspecified; I10 Essential (primary) hypertension; E78.2 Mixed hyperlipidemia; R09.89 Other specified symptoms and signs involving the circulatory and respiratory systems; I77.1 Stricture of artery
CPT/HCPCS: 36415; 80053; 82607; 83735; 85027

== ENCOUNTER 2025-02-15 21:56 | Emergency (ER) | payer MEDICARE, MEDICAID, SELFPAY ==
[2025-02-15 22:10] VITALS: BP 165/89; PULSE 105; RESP 15; TEMP 36.6; O2SAT 93
--- OUTSIDE RECORDS SUMMARY | 2025-02-15 22:22 | XMS_ITS | Clinical Summary ---
Author Organization [facility] Address [address] [place] [address] Care Team Providers Care Immigration Specialist Name Role Phone Liang Isbell MD Unavailable Keith Pablo DO Primary Care Provider [phone] Allergies Active Allergy Reactions Criticality Noted Date [...] on file Legal Sex Female 4:10 PM [employer] Gender Identity Not on file Sexual Orientation Not on file Last Filed Vital Signs Vital Sign Reading Time Taken Comments Blood Pressure 162/78 12/12/2020 10:06 AM [employer] Pulse 82 12/12/2020 10:06 AM [employer] Temperature - - Respiratory Rate - - Oxygen Saturation 93% 12/12/2020 10:06 AM [employer] Inhaled Oxygen Concentration - - Weight 91.2 kg (201 lb) 12/12/2020 10:06 AM [employer] Height 170.2 cm (5' 7 ) 12/12/2020 10:06 AM [employer] Body Mass Index 31.48 12/12/2020 10:06 AM [employer] Plan of Treatment Health Maintenance Due Date Last Done Comments Colorectal Cancer Screening Colonoscopy (10 Years) 1955 Hepatitis C 1973 DTaP, Tdap and Td Vaccines ( 1 - Tdap) 1974 Mammogram Screening 1995 Pneumococcal Vaccine: 50+ Ye ars (1 of 1 - PCV) 2005 Zoster Vaccines (1 of 2) 2005 Annual Medicare Wellness Visit 2020 Dexa Scan (General) 2020 COVID-19 Vaccine ( - 2023-2 5 season) 2024 RSV Immunization or 60+ Years (1 [...] this topic Insurance MEDICAID MEDICARE Care Teams Immigration Specialist Relationship Specialty Start Date End Date Keith Pablo DO [address] [id number] PCP - General INTERNAL MEDICINE 10/18/19 Liang Isbell MD [address] [id number] Referring Physician VASCULAR SURGERY 10/26/18
[2025-02-15 22:58] LABS: Acetaminophen < 10 ug/mL (10-30); Ethanol < 10 mg/dL (<10); Salicylate < 1.0 mg/dL (2-20)
[2025-02-15 22:59] LABS: Alanine Aminotransferase 16 U/L (6-35); Albumin Level 4.1 g/dL (3.5-5.1); Alkaline Phosphatase 87 U/L (38-126); Anion Gap 9 mmol/L (4-12); Aspartate Amino Transferase 33 U/L (14-36); Bilirubin,Total 0.8 mg/dL (0.2-1.3); Blood Urea Nitrogen 15 mg/dL (7-17); Calcium 9.4 mg/dL (8.4-10.2); Carbon Dioxide 29 mmol/L (22-30); Chloride 103 mmol/L (98-107); Estimated CRCL calculation 65 ml/min; Estimated Glomerular Filt Rate > 60; Glucose 103 mg/dL (65-110); Potassium 3.1 mmol/L (3.4-5.0); Sodium 141 mmol/L (137-145)
--- NOTE | 2025-02-15 23:01 | PC.NURSE ---
Told by lab that CBC was clotted. Asked supervisor dental laboratory to attempt to redraw.
--- NOTE | 2025-02-15 23:04 | ED_ITS ---
HPI - General Adult General Chief complaint: Psychiatric Symptoms <Raman Denney MD - Last Filed: 02/16/25 18:58> Stated complaint: hearing voices - command <Raman Denney MD - Last Filed: 02/16/25 18:58> Time Seen by Provider: 02/15/25 21:59 <Raman Denney MD - Last Filed: 02/16/25 18:58> History of Present Illness HPI narrative: Patient is a 69-year-old female who presents the emergency department this due to concern for auditory hallucination and paranoid delusions. Patient called 911 initially informing them that she is hearing voices telling her to do things. Patient denies any psych history but refuses to provide us with a list of her medications. Patient believes that the smart android phone that her son recently bought her is bugged and that the class 1 owner operator of [employer] is listening in on her calls. Patient requested to be brought to [facility] and was upset at the EMS for not taking the route that she wanted them to take 1 bring her here. Currently denying any suicidal or homicidal ideation. <Raman Denney MD - Last Filed: 02/16/25 18:58> Related Data Home medications: Home Medications ?Medication ?Instructions ?Recorded ?Confirmed ?Last Taken ?Type aspirin 81 mg tablet,delayed 81 mg PO DAILY 12/22/19 07/10/24 Unknown History release (Adult Aspirin Regimen) cholecalciferol (vitamin D3) 25 5,000 unit PO DAILY 05/22/24 07/10/24 Unknown History mcg (1,000 unit) tablet <Raman Denney MD - Last Filed: 02/16/25 18:58> Allergies/adverse reactions: Allergies Allergy/AdvReac Type Severity Reaction Status Date / Time Sulfa (Sulfonamide Allergy Intermediate Other Verified 02/15/25 22:24 Antibiotics) <Raman Denney MD - Last Filed: 02/16/25 18:58> Review of Systems 2 Review of Systems: All systems are reviewed and are negative unless stated otherwise in the HPI. <Raman Denney MD - Last Filed: 02/16/25 18:58> PMFSH Past Medical History Medical History: Medical History Decreased hearing of both ears Tinnitus Cataract Chronic mastoiditis, right ear <Raman Denney MD - Last Filed: 02/16/25 18:58> Family History Family History: Family History Sibling , Breast Cancer No problems noted. Sibling , Massive Heart Attack No problems noted. Other Family history of coronary artery disease <Raman Denney MD - Last Filed: 02/16/25 18:58> Social History Social History: Social History Social History: Caffeine-tea Smoking packs per day: 1 Smoking cigarettes per day: 20.0 Years smoked: 40 Smoking pack-years: 40.00 Smoking status: Former smoker Tobacco type: cigarettes Second hand tobacco smoke exposure: Yes Smoking end date: 07/27/17 Alcohol intake: never Substance use: never Substance use type: does not use Lack of Transportation: No Lack of Food: Never True Current Housing: I Have Housing Concerned About Future Housing: No Difficulty Paying Gas/Electric Bills: No Difficulty Paying for Meds: No Currently Unemployed: No Education: High School Diploma/GED Difficulty w/ Childcare or Family Care: No <Raman Denney MD - Last Filed: 02/16/25 18:58> Exam 2 Narrative: General: Alert, awake, afebrile, severe paranoia. HEENT: PERRL, no rhinorrhea, no post nasal drip, oropharynx clear. Neck: Trachea midline, no JVD, no lymphadenopathy. Cardiovascular: Regular rate and rhythm, no murmurs, rubs or gallops, no peripheral edema. Respiratory: Clear to auscultation bilaterally, no tachypnea, no wheezing, no rhonchi, no rubs, no respiratory distress. Abdomen: Soft, nontender, nondistended, no rebound, no guarding, no peritoneal signs. Musculoskeletal: No joint swelling or deformity, normal muscle tone. Skin: No rashes or petechia, no signs of infection. Psychiatric: Acutely psychotic, severe paranoid delusions, uncooperative with examination, non-combative. Neurological: Alert and oriented to person and place. Follows all commands. No focal deficits, speech is clear and fluent. <Raman Denney MD - Last Filed: 02/16/25 18:58> Course Vital Signs Vital signs: Vital Signs Temperature 97.9 F 02/15/25 22:10 Pulse Rate 105 H 02/15/25 22:10 Respiratory Rate 15 02/15/25 22:10 Blood Pressure 165/89 H 02/15/25 22:10 Pulse Oximetry 93 02/15/25 22:10 Oxygen Delivery Room Air 02/15/25 22:10 Temperature 97.7 F 02/16/25 12:52 Pulse Rate 80 02/16/25 12:52 Respiratory Rate 20 02/16/25 07:50 Blood Pressure 109/64 02/16/25 12:52 Pulse Oximetry 93 02/16/25 12:52 Oxygen Delivery Room Air 02/15/25 22:10 <Raman Denney MD - Last Filed: 02/16/25 18:58> Vital Signs Temperature 97.9 F 02/15/25 22:10 Pulse Rate 105 H 02/15/25 22:10 Respiratory Rate 15 02/15/25 22:10 Blood Pressure 165/89 H 02/15/25 22:10 Pulse Oximetry 93 02/15/25 22:10 Oxygen Delivery Room Air 02/15/25 22:10 Temperature 97.7 F 02/16/25 12:52 Pulse Rate 80 02/16/25 12:52 Respiratory Rate 20 02/16/25 07:50 Blood Pressure 109/64 02/16/25 12:52 Pulse Oximetry 93 02/16/25 12:52 Oxygen Delivery Room Air 02/15/25 22:10 <Antonio Wood III, DO - Last Filed: 02/16/25 17:27> Medical Decision Making MDM Narrative Medical decision making narrative: The patient was evaluated by myself in the emergency department. History is obtained from patient who is an independent historian along with EMS report and physical exam was performed. External medical records were reviewed at this time. IV was established and pertinent tests were ordered. Laboratory results obtained revealing no acute process. Urinalysis revealed 1+ ketones, 2+ leuk esterases, greater than 100 RBCs, 11-20 white blood cells, 4+ bacteria and many squamous epithelial cells. CT brain without IV contrast was ordered at this time and is currently pending. Patient needed to be medicated with Zyprexa 5 mg IM in order to obtain COVID swab and CT scan as she continues to refuse additional work up, refused to stay in her room and is pacing the hallways attempting to leave the emergency department. Differential diagnosis considerations include acute psychosis, dementia versus delirium, paranoid delusions, mood disorder. Comorbidities impacting this visit include none. I have evaluated and discussed social determinants of health with the patient that could potentially impact subsequent diagnosis and treatment plans. On repeat assessment of the patient, reevaluation revealed that the patient is doing well and is in no acute distress. Patient symptoms have remained stable since she arrived to our emergency department. Repeat vital signs were all reviewed and noted to be stable. Patient is now medically cleared pending psychiatric evaluation. Patient was evaluated by our crisis team and was noted to be very paranoid and delusional, has no insight in her delusions, difficult to redirect. Patient's son was contacted by our crisis team in after an extensive discussion with him, he did provide us with additional information. Son states that this has been ongoing for at least 3 months but has not had any psychiatric evaluation. Son and crisis team believe that the patient would benefit from inpatient involuntary admission. There was also concern that the patient will not take the oral antibiotics at home for her urinary tract infection if discharged, as she is extremely paranoid and thinks everybody is out to get her and poison her. Patient was noted to have urinary tract infection which could be contributing to her symptoms and at this time she was started on antibiotics 500 mg of oral Keflex b.i.d. Inpatient certificate was filled out by me at this time. Patient is currently pending placement at a psychiatric facility. Assumed care at [address] head unremarkable. Pt has slightly low potassium so will give po. Pt stable during shift. Pt accepted to [facility] for transfer. <Raman Denney MD - Last Filed: 02/16/25 18:58> The patient was evaluated by myself in the emergency department. History is obtained from patient who is an independent historian along with EMS report and physical exam was performed. External medical records were reviewed at this time. IV was established and pertinent tests were ordered. Laboratory results obtained revealing no acute process. Urinalysis revealed 1+ ketones, 2+ leuk esterases, greater than 100 RBCs, 11-20 white blood cells, 4+ bacteria and many squamous epithelial cells. CT brain without IV contrast was ordered at this time and is currently pending. Patient needed to be medicated with Zyprexa 5 mg IM in order to obtain COVID swab and CT scan as she continues to refuse additional work up, refused to stay in her room and is pacing the hallways attempting to leave the emergency department. Differential diagnosis considerations include acute psychosis, dementia versus delirium, paranoid delusions, mood disorder. Comorbidities impacting this visit include none. I have evaluated and discussed social determinants of health with the patient that could potentially impact subsequent diagnosis and treatment plans. On repeat assessment of the patient, reevaluation revealed that the patient is doing well and is in no acute distress. Patient symptoms have remained stable since she arrived to our emergency department. Repeat vital signs were all reviewed and noted to be stable. Patient is now medically cleared pending psychiatric evaluation. Patient was evaluated by our crisis team and was noted to be very paranoid and delusional, has no insight in her delusions, difficult to redirect. Patient's son was contacted by our crisis team in after an extensive discussion with him, he did provide us with additional information. Son states that this has been ongoing for at least 3 months but has not had any psychiatric evaluation. Son and crisis team believe that the patient would benefit from inpatient involuntary admission. There was also concern that the patient will not take the oral antibiotics at home for her urinary tract infection if discharged, as she is extremely paranoid and thinks everybody is out to get her and poison her. Patient was noted to have urinary tract infection which could be contributing to her symptoms and at this time she was started on antibiotics 500 mg of oral Keflex b.i.d. Inpatient certificate was filled out by me at this time. Patient is currently pending placement at a psychiatric facility. assumed care at [address] head unremarkable. Pt hs slightly low potassium so will give po. Pt stable during shift. Pt accepted to [facility] for transfer <Antonio Wood III, DO - Last Filed: 02/16/25 17:27> Vital Signs Vital Signs: Vital Signs Temperature 97.9 F 02/15/25 22:10 Pulse Rate 105 H 02/15/25 22:10 Respiratory Rate 15 02/15/25 22:10 Blood Pressure 165/89 H 02/15/25 22:10 Pulse Oximetry 93 02/15/25 22:10 Oxygen Delivery Room Air 02/15/25 22:10 Temperature 97.7 F 02/16/25 12:52 Pulse Rate 80 02/16/25 12:52 Respiratory Rate 20 02/16/25 07:50 Blood Pressure 109/64 02/16/25 12:52 Pulse Oximetry 93 02/16/25 12:52 Oxygen Delivery Room Air 02/15/25 22:10 <Raman Denney MD - Last Filed: 02/16/25 18:58> Vital Signs Temperature 97.9 F 02/15/25 22:10 Pulse Rate 105 H 02/15/25 22:10 Respiratory Rate 15 02/15/25 22:10 Blood Pressure 165/89 H 02/15/25 22:10 Pulse Oximetry 93 02/15/25 22:10 Oxygen Delivery Room Air 02/15/25 22:10 Temperature 97.7 F 02/16/25 12:52 Pulse Rate 80 02/16/25 12:52 Respiratory Rate 20 02/16/25 07:50 Blood Pressure 109/64 02/16/25 12:52 Pulse Oximetry 93 02/16/25 12:52 Oxygen Delivery Room Air 02/15/25 22:10 <Antonio Wood III, DO - Last Filed: 02/16/25 17:27> Lab Data Result diagrams: 02/15/25 23:32 02/15/25 22:41 <Raman Denney MD - Last Filed: 02/16/25 18:58> Labs: Lab Results 02/15/25 02/15/25 02/16/25 Range/Units 22:41 23:32 01:57 WBC 4.2 L (4.5-10.0) K/mm3 RBC 4.07 L (4.2-5.4) M/mm3 Hgb 13.6 (12.0-15.0) g/dL Hct 40.5 (37.0-47.0) % MCV 99.5 (80-100) fl MCH 33.4 (26-34) pg MCHC 33.6 (32-36) g/dl RDW 13.4 (11.5-14.5) % Plt Count 146 L (150-375) k/mm3 MPV 10.3 (7.4-10.4) fl Immature Gran % (Auto) 0.0 (0-0.5) % Neut % (Auto) 50.3 (45.5-73.1) % Lymph % (Auto) 39.0 (18.3-44.2) % [place] % (Auto) 8.8 H (2.6-8.5) % Eos % (Auto) 1.2 (0-4.4) % Baso % (Auto) 0.7 (0.2-1.2) % Lymph # (Auto) 1.64 (0.9-3.2) K/mm3 [place] # (Auto) 0.4 (0.1-0.6) K/mm3 Eos # (Auto) 0.1 (0-0.3) K/mm3 Baso # (Auto) 0.0 (0.0-0.1) K/mm3 Abs Immat Gran (auto) 0.00 (0.00-0.031) K/mm3 Absolute Neuts (auto) 2.1 (1.3-6.7) K/mm3 Absolute Nucleated RBC 0.000 (0.0-0.012) K/mm3 Nucleated RBC % 0.0 (0.0-0.2) % % Immature Plt Fraction 5.0 (0.9-11.2) % Sodium 141 (137-145) mmol/L Potassium 3.1 L (3.4-5.0) mmol/L Chloride 103 (98-107) mmol/L Carbon Dioxide 29 (22-30) mmol/L Anion Gap 9 (4-12) mmol/L BUN 15 D (7-17) mg/dL Creatinine 0.65 L (0.7-1.0) mg/dL Estim Creat Clear Calc 65 ml/min Estimated GFR > 60 (59 - ) Glucose 103 (65-110) mg/dL Calcium 9.4 (8.4-10.2) mg/dL Magnesium 1.9 (1.6-2.3) mg/dL Total Bilirubin 0.8 (0.2-1.3) mg/dL AST 33 (14-36) U/L ALT 16 (6-35) U/L Alkaline Phosphatase 87 (38-126) U/L Total Protein 8.0 (6.3-8.2) g/dL Albumin 4.1 (3.5-5.1) g/dL Urine Color Dark yellow (Yellow) Urine Appearance Cloudy H (Clear) Urine pH 5.5 (5.0-9.0) Ur Specific [place] 1.024 (1.001-1.035) Urine Protein Trace (Negative) mg/dL Urine Glucose (UA) Negative (Negative) mg/dL Urine Ketones 1+ H (Negative) mg/dL Ur Blood (Man) Negative (Negative) Urine Nitrate Negative (Negative) Urine Bilirubin Negative (Negative) Urine Urobilinogen 1.0 (<2.0) mg/dL Add Ur Microanalysis Reviewed Leukocyte Esterase Rfl 2+ H (Negative) [place]/UL Urine RBC >100 H (0-2) /hpf Urine WBC 11-20 H (0-3) /hpf Ur Squamous Epith Cells Many H (Few) /hpf Urine Bacteria 4+ H /hpf Urine Casts 6-10 Urine Mucus Present /lpf Salicylates < 1.0 L (2-20) mg/dL Urine Opiates Screen Negative (Negative) Urine Methadone Screen Negative (Negative) Acetaminophen < 10 L (10-30) ug/mL Ur Barbiturates Screen Negative (Negative) Ur Phencyclidine Scrn Negative (Negative) Ur Amphetamine Screen Negative (Negative) U Benzodiazepines Scrn Negative (Negative) Urine Cocaine Screen Negative (Negative) U Cannabinoids Screen Negative (Negative) Ethyl Alcohol < 10 (<10) mg/dL Influenza A (RT-PCR) (Negative) Influenza B (RT-PCR) (Negative) RSV (RT-PCR) (Negative) SARS-CoV-2 RNA (RT-PCR) (Negative) 02/16/25 Range/Units 12:44 WBC (4.5-10.0) K/mm3 RBC (4.2-5.4) M/mm3 Hgb (12.0-15.0) g/dL Hct (37.0-47.0) % MCV (80-100) fl MCH (26-34) pg MCHC (32-36) g/dl RDW (11.5-14.5) % Plt Count (150-375) k/mm3 MPV (7.4-10.4) fl Immature Gran % (Auto) (0-0.5) % Neut % (Auto) (45.5-73.1) % Lymph % (Auto) (18.3-44.2) % [place] % (Auto) (2.6-8.5) % Eos % (Auto) (0-4.4) % Baso % (Auto) (0.2-1.2) % Lymph # (Auto) (0.9-3.2) K/mm3 [place] # (Auto) (0.1-0.6) K/mm3 Eos # (Auto) (0-0.3) K/mm3 Baso # (Auto) (0.0-0.1) K/mm3 Abs Immat Gran (auto) (0.00-0.031) K/mm3 Absolute Neuts (auto) (1.3-6.7) K/mm3 Absolute Nucleated RBC (0.0-0.012) K/mm3 Nucleated RBC % (0.0-0.2) % % Immature Plt Fraction (0.9-11.2) % Sodium (137-145) mmol/L Potassium (3.4-5.0) mmol/L Chloride (98-107) mmol/L Carbon Dioxide (22-30) mmol/L Anion Gap (4-12) mmol/L BUN (7-17) mg/dL Creatinine (0.7-1.0) mg/dL Estim Creat Clear Calc ml/min Estimated GFR (59 - ) Glucose (65-110) mg/dL Calcium (8.4-10.2) mg/dL Magnesium (1.6-2.3) mg/dL Total Bilirubin (0.2-1.3) mg/dL AST (14-36) U/L ALT (6-35) U/L Alkaline Phosphatase (38-126) U/L Total Protein (6.3-8.2) g/dL Albumin (3.5-5.1) g/dL Urine Color (Yellow) Urine Appearance (Clear) Urine pH (5.0-9.0) Ur Specific [place] (1.001-1.035) Urine Protein (Negative) mg/dL Urine Glucose (UA) (Negative) mg/dL Urine Ketones (Negative) mg/dL Ur Blood (Man) (Negative) Urine Nitrate (Negative) Urine Bilirubin (Negative) Urine Urobilinogen (<2.0) mg/dL Add Ur Microanalysis Leukocyte Esterase Rfl (Negative) [place]/UL Urine RBC (0-2) /hpf Urine WBC (0-3) /hpf Ur Squamous Epith Cells (Few) /hpf Urine Bacteria /hpf Urine Casts Urine Mucus /lpf Salicylates (2-20) mg/dL Urine Opiates Screen (Negative) Urine Methadone Screen (Negative) Acetaminophen (10-30) ug/mL Ur Barbiturates Screen (Negative) Ur Phencyclidine Scrn (Negative) Ur Amphetamine Screen (Negative) U Benzodiazepines Scrn (Negative) Urine Cocaine Screen (Negative) U Cannabinoids Screen (Negative) Ethyl Alcohol (<10) mg/dL Influenza A (RT-PCR) Negative (Negative) Influenza B (RT-PCR) Negative (Negative) RSV (RT-PCR) Negative (Negative) SARS-CoV-2 RNA (RT-PCR) Negative (Negative) <Raman Denney MD - Last Filed: 02/16/25 18:58> Lab Results 02/15/25 02/15/25 02/16/25 Range/Units 22:41 23:32 01:57 WBC 4.2 L (4.5-10.0) K/mm3 RBC 4.07 L (4.2-5.4) M/mm3 Hgb 13.6 (12.0-15.0) g/dL Hct 40.5 (37.0-47.0) % MCV 99.5 (80-100) fl MCH 33.4 (26-34) pg MCHC 33.6 (32-36) g/dl RDW 13.4 (11.5-14.5) % Plt Count 146 L (150-375) k/mm3 MPV 10.3 (7.4-10.4) fl Immature Gran % (Auto) 0.0 (0-0.5) % Neut % (Auto) 50.3 (45.5-73.1) % Lymph % (Auto) 39.0 (18.3-44.2) % [place] % (Auto) 8.8 H (2.6-8.5) % Eos % (Auto) 1.2 (0-4.4) % Baso % (Auto) 0.7 (0.2-1.2) % Lymph # (Auto) 1.64 (0.9-3.2) K/mm3 [place] # (Auto) 0.4 (0.1-0.6) K/mm3 Eos # (Auto) 0.1 (0-0.3) K/mm3 Baso # (Auto) 0.0 (0.0-0.1) K/mm3 Abs Immat Gran (auto) 0.00 (0.00-0.031) K/mm3 Absolute Neuts (auto) 2.1 (1.3-6.7) K/mm3 Absolute Nucleated RBC 0.000 (0.0-0.012) K/mm3 Nucleated RBC % 0.0 (0.0-0.2) % % Immature Plt Fraction 5.0 (0.9-11.2) % Sodium 141 (137-145) mmol/L Potassium 3.1 L (3.4-5.0) mmol/L Chloride 103 (98-107) mmol/L Carbon Dioxide 29 (22-30) mmol/L Anion Gap 9 (4-12) mmol/L BUN 15 D (7-17) mg/dL Creatinine 0.65 L (0.7-1.0) mg/dL Estim Creat Clear Calc 65 ml/min Estimated GFR > 60 (59 - ) Glucose 103 (65-110) mg/dL Calcium 9.4 (8.4-10.2) mg/dL Magnesium 1.9 (1.6-2.3) mg/dL Total Bilirubin 0.8 (0.2-1.3) mg/dL AST 33 (14-36) U/L ALT 16 (6-35) U/L Alkaline Phosphatase 87 (38-126) U/L Total Protein 8.0 (6.3-8.2) g/dL Albumin 4.1 (3.5-5.1) g/dL Urine Color Dark yellow (Yellow) Urine Appearance Cloudy H (Clear) Urine pH 5.5 (5.0-9.0) Ur Specific [place] 1.024 (1.001-1.035) Urine Protein Trace (Negative) mg/dL Urine Glucose (UA) Negative (Negative) mg/dL Urine Ketones 1+ H (Negative) mg/dL Ur Blood (Man) Negative (Negative) Urine Nitrate Negative (Negative) Urine Bilirubin Negative (Negative) Urine Urobilinogen 1.0 (<2.0) mg/dL Add Ur Microanalysis Reviewed Leukocyte Esterase Rfl 2+ H (Negative) [place]/UL Urine RBC >100 H (0-2) /hpf Urine WBC 11-20 H (0-3) /hpf Ur Squamous Epith Cells Many H (Few) /hpf Urine Bacteria 4+ H /hpf Urine Casts 6-10 Urine Mucus Present /lpf Salicylates < 1.0 L (2-20) mg/dL Urine Opiates Screen Negative (Negative) Urine Methadone Screen Negative (Negative) Acetaminophen < 10 L (10-30) ug/mL Ur Barbiturates Screen Negative (Negative) Ur Phencyclidine Scrn Negative (Negative) Ur Amphetamine Screen Negative (Negative) U Benzodiazepines Scrn Negative (Negative) Urine Cocaine Screen Negative (Negative) U Cannabinoids Screen Negative (Negative) Ethyl Alcohol < 10 (<10) mg/dL Influenza A (RT-PCR) (Negative) Influenza B (RT-PCR) (Negative) RSV (RT-PCR) (Negative) SARS-CoV-2 RNA (RT-PCR) (Negative) 02/16/25 Range/Units 12:44 WBC (4.5-10.0) K/mm3 RBC (4.2-5.4) M/mm3 Hgb (12.0-15.0) g/dL Hct (37.0-47.0) % MCV (80-100) fl MCH (26-34) pg MCHC (32-36) g/dl RDW (11.5-14.5) % Plt Count (150-375) k/mm3 MPV (7.4-10.4) fl Immature Gran % (Auto) (0-0.5) % Neut % (Auto) (45.5-73.1) % Lymph % (Auto) (18.3-44.2) % [place] % (Auto) (2.6-8.5) % Eos % (Auto) (0-4.4) % Baso % (Auto) (0.2-1.2) % Lymph # (Auto) (0.9-3.2) K/mm3 [place] # (Auto) (0.1-0.6) K/mm3 Eos # (Auto) (0-0.3) K/mm3 Baso # (Auto) (0.0-0.1) K/mm3 Abs Immat Gran (auto) (0.00-0.031) K/mm3 Absolute Neuts (auto) (1.3-6.7) K/mm3 Absolute Nucleated RBC (0.0-0.012) K/mm3 Nucleated RBC % (0.0-0.2) % % Immature Plt Fraction (0.9-11.2) % Sodium (137-145) mmol/L Potassium (3.4-5.0) mmol/L Chloride (98-107) mmol/L Carbon Dioxide (22-30) mmol/L Anion Gap (4-12) mmol/L BUN (7-17) mg/dL Creatinine (0.7-1.0) mg/dL Estim Creat Clear Calc ml/min Estimated GFR (59 - ) Glucose (65-110) mg/dL Calcium (8.4-10.2) mg/dL Magnesium (1.6-2.3) mg/dL Total Bilirubin (0.2-1.3) mg/dL AST (14-36) U/L ALT (6-35) U/L Alkaline Phosphatase (38-126) U/L Total Protein (6.3-8.2) g/dL Albumin (3.5-5.1) g/dL Urine Color (Yellow) Urine Appearance (Clear) Urine pH (5.0-9.0) Ur Specific [place] (1.001-1.035) Urine Protein (Negative) mg/dL Urine Glucose (UA) (Negative) mg/dL Urine Ketones (Negative) mg/dL Ur Blood (Man) (Negative) Urine Nitrate (Negative) Urine Bilirubin (Negative) Urine Urobilinogen (<2.0) mg/dL Add Ur Microanalysis Leukocyte Esterase Rfl (Negative) [place]/UL Urine RBC (0-2) /hpf Urine WBC (0-3) /hpf Ur Squamous Epith Cells (Few) /hpf Urine Bacteria /hpf Urine Casts Urine Mucus /lpf Salicylates (2-20) mg/dL Urine Opiates Screen (Negative) Urine Methadone Screen (Negative) Acetaminophen (10-30) ug/mL Ur Barbiturates Screen (Negative) Ur Phencyclidine Scrn (Negative) Ur Amphetamine Screen (Negative) U Benzodiazepines Scrn (Negative) Urine Cocaine Screen (Negative) U Cannabinoids Screen (Negative) Ethyl Alcohol (<10) mg/dL Influenza A (RT-PCR) Negative (Negative) Influenza B (RT-PCR) Negative (Negative) RSV (RT-PCR) Negative (Negative) SARS-CoV-2 RNA (RT-PCR) Negative (Negative) <Antonio Wood III DO - Last Filed: 02/16/25 17:27> Discharge Plan Discharge Clinical Impression: Paranoid delusion, Urinary tract infection, Hallucinations <Raman Denney MD - Last Filed: 02/16/25 18:58> Patient Disposition: Psychiatric Hosp <Raman Denney MD - Last Filed: 02/16/25 18:58> Condition: Stable <Raman Denney MD - Last Filed: 02/16/25 18:58> Instructions: Urinary Tract Infection in Women (DC), Hallucinations (ED) <Raman Denney MD - Last Filed: 02/16/25 18:58> Patient Language: Palauan <Raman Denney MD - Last Filed: 02/16/25 18:58> Prescriptions: New cephalexin 500 mg capsule 500 mg PO Q12H 7 Days Qty: 14 0RF No Action cholecalciferol (vitamin D3) 25 mcg (1,000 unit) tablet 5,000 unit PO DAILY aspirin [Adult Aspirin Regimen] 81 mg tablet,delayed release (DR/EC) 81 mg PO DAILY metoprolol succinate 25 mg tablet extended release 24 hr 25 mg PO DAILY Qty: 90 1RF escitalopram oxalate [Lexapro] 10 mg tablet 10 mg PO DAILY Qty: 90 0RF atorvastatin 20 mg tablet 20 mg PO DAILY Qty: 90 1RF potassium chloride 10 mEq tablet extended release See Rx Instructions .ROUTE .COMPLEX Qty: 90 1RF Dose Instruction: TAKE 1 TABLET BY MOUTH DAILY Rx Instructions: TAKE 1 TABLET BY MOUTH DAILY furosemide 40 mg tablet 40 mg PO QAM Qty: 90 1RF <Raman Denney MD - Last Filed: 02/16/25 18:58> Time of Disposition: 03:55 <MD Alena Quinones Last Filed: 02/16/25 18:58> 03:55 <Antonio Wood III, DO - Last Filed: 02/16/25 17:27>
--- NOTE | 2025-02-15 23:40 | PC.NURSE ---
Patient believes the contents from the blood tubes were being put into her body, and blood was not being drawn.
[2025-02-15 23:41] LABS: Basophils Percent Auto 0.7 % (0.2-1.2); Eosinophils Absolute Auto 0.1 K/mm3 (0-0.3); Eosinophils Percent Auto 1.2 % (0-4.4); Hematocrit 40.5 % (37.0-47.0); Hemoglobin 13.6 g/dL (12.0-15.0); Lymphocytes Absolute Auto 1.64 K/mm3 (0.9-3.2); Mean Corpuscular HGB Conc 33.6 g/dl (32-36); Mean Corpuscular Hemoglobin 33.4 pg (26-34); Mean Corpuscular Volume 99.5 fl (80-100); Mean Platelet Volume 10.3 fl (7.4-10.4); Monocytes Absolute Auto 0.4 K/mm3 (0.1-0.6); Monocytes Percent Auto 8.8 % (2.6-8.5); Neutrophils Absolute Auto 2.1 K/mm3 (1.3-6.7); Neutrophils Percent Auto 50.3 % (45.5-73.1); Platelet Count Result 146 k/mm3 (150-375); Red Blood Count 4.07 M/mm3 (4.2-5.4); Red Cell Distribution Width 13.4 % (11.5-14.5); White Blood Count 4.2 K/mm3 (4.5-10.0)
[2025-02-15 23:49] LABS: Magnesium 1.9 mg/dL (1.6-2.3)
[2025-02-16 02:15] LABS: Add Urine Microscopic? YES; Appearance Urine Cloudy (Clear); Bacteria Urine 4+ /hpf; Bilirubin Urine Negative (Negative); Blood Urine Negative (Negative); Color Urine Dark Yellow (Yellow); Glucose Urine UA Negative (Negative); Ketones Urine 1+ mg/dL (Negative); Leukocyte Esterase Ur 2+ LEU/UL (Negative); Mucus Urine Present /lpf; Need Manual Microscopic Reviewed; Nitrate Urine Negative (Negative); Protein Urine Trace mg/dL (Negative); RBC Urine >100 /hpf (0-2); Specific Grav Ur 1.024 (1.001-1.035); Squamous Epithelial Cell Urine Many /hpf (Few); pH Urine 5.5 (5.0-9.0)
[2025-02-16 02:24] VITALS: BP 147/81; PULSE 97; RESP 13; O2SAT 94
--- NOTE | 2025-02-16 02:41 | PC.NURSE ---
Patient refused covid swab.
[2025-02-16 02:46] LABS: Amphetamine Screen Urine Negative (Negative); Barbiturate Screen Urine Negative (Negative); Benzodiazepines Screen Urine Negative (Negative); Cannabinoid Screen Urine Negative (Negative); Cocaine Screen Urine Negative (Negative); Methadone Screen Urine Negative (Negative); Opiate Screen Urine Negative (Negative); Phencyclidine Screen Urine Negative (Negative)
--- NOTE | 2025-02-16 04:10 | PC.NURSE ---
Patient has no ride, son refuses to pick patient up. Patient states she will not take a taxi, but will ride the bus in the morning.
[2025-02-16] MEDS: CEPHALEXIN 500 MG CAPSULE PO (05:01)
--- NOTE | 2025-02-16 05:03 | PC.NURSE ---
Patient argumentative about taking Keflex for UTI. Patient believes that the medication is not the correct medication because it has numbers on it, and believes it is going to cause her to have a heart attack or pass out. Explained to patient that the UTI could be contributing to the patient's symptoms. Patient agreed to take the Keflex. This RN gave patient the unopened medication to open herself to show that it had not been tampered with.
--- NOTE | 2025-02-16 06:04 | PC.NURSE ---
Pt moved from room 10 to room 15, attempted to have pt change into green scrubs but pt refuses. Pt states I know what's going on here, I've been watching everything pt states she believes we are moving her rooms b/c it's easier to clean Pt then became irritable and raised her voice stating that she was going to leave. ED security called to de-escalate and remains w/ pt outside of room 15 at this time.
[2025-02-16] MEDS: OLANZapine 5 MG, WATER, STERILE FOR INJECTION 2.1 ML IM (06:30)
--- NOTE | 2025-02-16 06:31 | PC.NURSE ---
Pt repeatedly tried to walk out [facility]. Security, pediatric physician assistant Agustina, this RN, and several ER techs at [facility] with pt to de-escalate and have pt walk back to her room. Pt repeatedly refuses and is adamant that she is leaving the ER. Pt made aware that she is going to be involuntarily admitted to a psych facility. Pt walked back to room but still refusing to cooperate, will not change into green scrubs or give us her belongings, and yelling at staff. Dr. Denney placed orders for 5 mg of zyprexa. Pt informed that we would give her a medication to calm down. pt then became violent towards staff, kicking and hitting. Pt's belongings taken from her and was changed into green scrubs by staff. 5 mg of xyprexa given IM in the right thigh. Pt remains uncooperative with vital signs at this time. Sitter now at bedside with pt.
[2025-02-16 06:58] VITALS: BP 111/61; PULSE 126; RESP 15; O2SAT 92
[2025-02-16 07:50] VITALS: BP 112/67; PULSE 93; RESP 20; TEMP 36.9; O2SAT 98
--- NOTE | 2025-02-16 08:54 | PC.NURSE ---
Alert x4. Appropriate with staff.
--- NOTE | 2025-02-16 11:34 | PC.NURSE ---
patient resting comfortably in bed with chest rise and fall noted.
--- NOTE | 2025-02-16 12:02 | PC.NURSE ---
Spoke with Genevieve from [facility] at this time [facility] has no beds available today but may have beds tomorrow Elana is still reviewing the patients chart at this time Elisabeth is still reviewing the patients chart at this time Phone number provided to fax chart to [facility] ([phone])
--- NOTE | 2025-02-16 12:45 | PC.NURSE ---
Patient refusing potassium pills at this time, states she needs to eat with them when offered a food tray the patient stated no I don't feel like eating this early Genevieve from [facility] called with updates- [facility] needs updated progress notes, vital signs, information about UTI as well as information regarding plan for low potassium. Patient allowed a covid swab that was sent at this time.
[2025-02-16 12:52] VITALS: BP 109/64; PULSE 80; TEMP 36.5; O2SAT 93
--- NOTE | 2025-02-16 13:21 | PC.NURSE ---
patient cooperative, denies any hallucinations or desire to harm self or others at this time. patient ordering a lunch tray and will take her potassium medication with her food
[2025-02-16] MEDS: POTASSIUM CHLORIDE 20 MEQ ER TABLET 40 MEQ PO (13:25)
[2025-02-16 13:26] LABS: Influenza A QL RT-PCR Negative (Negative); Influenza B QL RT-PCR Negative (Negative); RSV RNA, RT-PCR Negative (Negative); SARS-CoV-2 RNA PCR Negative (Negative)
--- NOTE | 2025-02-16 13:30 | PC.NURSE ---
Returned call to [facility] at this time for placement, when asked to be transferred to [place] they were unsure who to transfer me to and state that they have no way to help at this time. will attempt to call back again.
--- NOTE | 2025-02-16 14:57 | PC.NURSE ---
patient updated chart, vital signs, notes, and lab results faxed to [facility], and [facility] by [facility] staff members.
--- NOTE | 2025-02-16 15:41 | PC.NURSE ---
pt report called to [facility]- spoke with Martín FORD. going to [address] Najera Report called to [phone]
== END 2025-02-16 16:32 ==
PROVIDERS: Emergency Medicine; Emergency Provider Emergency Medicine; PCP Family Medicine
DX: F22 Delusional disorders (principal); Z11.52 Encounter for screening for COVID-19; H70.11 Chronic mastoiditis, right ear; H26.9 Unspecified cataract; Z87.891 Personal history of nicotine dependence
CPT/HCPCS: 36415; 80053; 80143; 80179; 80307; 81001; 82077; 83735; 85025; 85055; 87637; 96372; 99285; A9270; J2359